=== PATIENT | female | born 1990 | race Caucasian/White ===

== ENCOUNTER 2020-01-10 16:28 | Emergency (ER) | payer MEDICAID ==
[~2020-01-10] VITALS: Ht 160 cm; Wt 60.3 kg
[2020-01-10 16:41] VITALS: Ht 160 cm; Wt 60.3 kg
[2020-01-10 18:30] LABS: BASOPHIL % 0.1 % (0-2); PLATELET COUNT 149 x10^3mcL (130-400); RED CELL DISTRIBUTION WIDTH 12.4 % (11.5-14.5)
[2020-01-10 18:48] LABS: CALCIUM 8.8 mg/dL (8.5-10.1); CARBON DIOXIDE 26.5 mmol/L (21-32); CHLORIDE SERUM 99 mmol/L (98-107); CREATININE SERUM 0.9 mg/dL (0.6-1.0); GFR1 > 60 mL/min; GLUCOSE SERUM 133 mg/dL (74-106); POTASSIUM SERUM 3.5 mmol/L (3.5-5.1); SODIUM SERUM 134 mmol/L (136-145)
[2020-01-10 18:53] LABS: ALKALINE PHOSPHATASE 63 U/L (46-116); ALT/SGPT 15 U/L (14-59); AST/SGOT 15 U/L (15-37); BILIRUBIN TOTAL 0.4 mg/dL (0.20-1.00); LIPASE 61 IU/L (73-393); TOTAL PROTEIN, SERUM 7.1 g/dL (6.4-8.2)
[2020-01-10 18:57] LABS: UA SPECIFIC GRAVITY >=1.030 (1.005-1.035); microscopic required? YES; urine erythrocyte 3+ (NEGATIVE)
[2020-01-10 18:58] LABS: ALBUMIN 3.1 g/dL (3.4-5.0)
[2020-01-10 19:16] VITALS: BP 106/64
== END 2020-01-10 20:56 | disposition home or self-care (01) ==
LOC: ED 16:28
PROVIDERS: Emergency Medicine
DX: N39.0 Urinary tract infection, site not specified (principal); F17.210 Nicotine dependence, cigarettes, uncomplicated
CPT/HCPCS: J0696; J1885